=== PATIENT | male | born 1995 | race Caucasian/White ===

== ENCOUNTER → 2020-05-25 15:20 | Outpatient (BNVA) | payer OTHER, SELFPAY | PROVIDERS: Visit Provider Internal Medicine | DX: E03.9 Hypothyroidism, unspecified (principal); E27.1 Primary adrenocortical insufficiency | CPT/HCPCS: 99204 ==

== ENCOUNTER 2020-12-20 15:22 | Outpatient (CLI) | payer OTHER, SELFPAY ==
[2020-12-20 16:17] LABS: Anion Gap 12.2 (5-19); Blood Urea Nitrogen 15 mg/dL (6-20); Calcium 9.4 mg/dL (8.5-10.5); Carbon Dioxide 29 mmol/L (22-29); Chloride 97 mmol/L (98-107); Free T4 Free Thyroxine 1.76 ng/dL (0.82-1.77); Glomerular Filtration Rate 101.2 mL/min (90-130); Glucose 83 mg/dL (65-115); Osmolality Calculated 278 mOsm/kg (285-295); Potassium 4.2 mmol/L (3.5-5.1); Sodium 134 mmol/L (136-145); Thyroid Stimulating Hormone 1.96 uIU/mL (0.27-4.20)
[2020-12-23 13:17] LABS: Plasma Renin Activity LC/MS/MS 8.24 ng/mL/h (0.25-5.82)
== END 2020-12-20 15:23 | disposition home or self-care (01) ==
PROVIDERS: Visit Provider Internal Medicine
DX: E03.9 Hypothyroidism, unspecified (principal); E27.1 Primary adrenocortical insufficiency
CPT/HCPCS: 36415; 80048; 84244; 84439; 84443

== ENCOUNTER → 2021-03-28 13:26 | Outpatient (BNVA) | payer OTHER, SELFPAY | PROVIDERS: Visit Provider Internal Medicine | DX: E27.1 Primary adrenocortical insufficiency (principal); E03.9 Hypothyroidism, unspecified | CPT/HCPCS: 99214 ==

== ENCOUNTER 2021-03-28 14:38 | Outpatient (CLI) | payer OTHER, SELFPAY ==
[2021-03-28 15:57] LABS: Anion Gap 15.5 (5-19); Blood Urea Nitrogen 13 mg/dL (6-20); Calcium 8.9 mg/dL (8.5-10.5); Carbon Dioxide 23 mmol/L (22-29); Chloride 102 mmol/L (98-107); Free T4 Free Thyroxine 1.42 ng/dL (0.82-1.77); Glucose 97 mg/dL (65-115); Osmolality Calculated 284 mOsm/kg (285-295); Potassium 3.5 mmol/L (3.5-5.1); Sodium 137 mmol/L (136-145); Thyroid Stimulating Hormone 1.28 uIU/mL (0.27-4.20)
[2021-04-01 01:59] LABS: Plasma Renin Activity LC/MS/MS 2.46 ng/mL/h (0.25-5.82)
== END 2021-03-28 14:39 | disposition home or self-care (01) ==
PROVIDERS: Visit Provider Internal Medicine
DX: E27.1 Primary adrenocortical insufficiency (principal); E03.9 Hypothyroidism, unspecified
CPT/HCPCS: 36415; 80048; 84244; 84439; 84443

== ENCOUNTER 2021-05-12 13:43 | Observation (INO) | payer OTHER, SELFPAY ==
[2021-05-12 13:45] VITALS: BP 103/46; PULSE 105; RESP 14; O2SAT 94; BMI 19.2
[2021-05-12 14:06] VITALS: BP 99/39; PULSE 107; RESP 14; O2SAT 97
--- NOTE | 2021-05-12 14:17 | ECG_ITS ---
[facility] Test Date: 2021-05-12 Pat Name: Pedrito Haas Department: Room: Gender: Male Trim Technician: : 1995 Requested By: Mehrdad Brown Order Number: [id number] Kostas MD: MARISSA FREDERICK Measurements Intervals Maxie Rate: 117 P: 73 OK: 149 QRS: 26 QRSD: 98 T: 83 QT: 420 QTc: 588 Interpretive Statements SINUS TACHYCARDIA POSSIBLE RIGHT VENTRICULAR CONDUCTION DELAY [RSR (QR) IN V1/V2] SEPTAL MYOCARDIAL INFARCTION , OF INDETERMINATE AGE [40+ ms Q WAVE IN V1/V2] No previous ECG available for comparison Electronically Signed On 05-12-2021 19:56:30 PET [employer]PPLIES SALESPERSON by MARISSA FREDERICK [email or web address] [id number]
--- NOTE | 2021-05-12 14:18 | XRR_ITS ---
PROCEDURE INFORMATION: Exam: XR Chest Exam date and time: 05/12/2021 2:18 PM Age: 25 years old Clinical indication: Other: AMS; Additional info: Altered mental status TECHNIQUE: Imaging protocol: XR of the chest. Views: 1 view. COMPARISON: No relevant prior studies available. FINDINGS: Lungs: Unremarkable. No consolidation. Pleural spaces: Unremarkable. No pleural effusion. No pneumothorax. Heart/Mediastinum: Unremarkable. No cardiomegaly. Bones/joints: Unremarkable. XR/XR chest 1V portable [id number] IMPRESSION: No acute findings.
--- NOTE | 2021-05-12 14:24 | ED_ITS ---
HPI - Altered Mental Status General: Chief Complaint: Altered Mental Status Stated Complaint: COMPLICATIONS OF ADDISONS Time Seen by Provider: 05/12/21 13:59 Source: patient and family Mode of arrival: EMS Limitations: altered mental status History of Present Illness: HPI narrative: According to the father patient started getting ill 3 days ago. Patient started having some mild confusion about 4 days ago. He did initially complain of a headache sore throat and low back pain. He had some mild nausea yesterday. He has had general malaise for the last 4 days. States she got up to go to work yesterday and did not feel well and went back to sleep. Patient slept most of the day. Patient has been ambulatory through the evening and early this morning. No fever or cough. Patient reportedly had a bowel movement early this morning that was loose but no constipation or blood. Patient denies any trauma. Father denies any trauma. Patient is acting similar as he acted when he was having Denver's crisis 1 or 2 years ago. Patient reportedly has been compliant with medications but father is unsure about this. Patient has prescription bottles for for cortisone and p rednisone and levothyroxine. Patient has severe general malaise now. Patient does awaken to verbal stimuli. Patient does answer some questions clearly. Patient states he has some mild generalized abdominal pain. complaint: altered mental status, confusion and decreased responsiveness Onset (ago): day(s) (2) Timing confirmed by: family member Severity: severe Consistency of symptoms: Getting Worse Review of Systems Const: Reports: body aches, fatigue and malaise; Denies: fever(s) or chills Eyes: Denies: change in vision ENMT: Reports: throat pain Card: Denies: chest pain or palpitations Resp: Denies: dyspnea or wheezing GI: Reports: nausea; Denies: abdominal pain or vomiting : Denies: flank pain Musc: Denies: neck pain or back pain Skin/Breast: Denies: rash or pruritus Neuro: Denies: headache(s) or numbness in extremities Psych: Denies: anxiety Jorge/Lymph: Denies: enlarged lymph nodes All/Imm: Denies: urticaria PFSH ED PFSH: Medical History Addisons disease Weight loss Surgical History No history of previous surgery Family History Mother IBS (irritable bowel syndrome) Social History Smoking and tobacco status: never smoked Second hand smoke exposure: Yes Alcohol intake: current Alcohol intake frequency: holidays/special occasions only Marital status: Single Current occupational status: employed Supplemental [facility] Information: StatesPatient does chew tobacco. She does not drink alcohol. Patient is allergic to penicillin. Physical Exam Const: COMMON NORMALS: no acute distress, no limitations, alert and well nourished EXAM LIMITATIONS: altered mental status GENERAL APPEARANCE: cooperative and disheveled ORIENTATION/CONSCIOUSNESS: Yes oriented to person and Yes oriented to place OTHER: Patient does awaken to verbal stimuli but is somnolent otherwise. Speech is clear. Patient appears mildly disoriented. Blood pressure is 99/39 with a heart rate of 105. Father states patient was very hypotensive with his first Vimal's crisis. HENMT: COMMON NORMALS: normocephalic and atraumatic HEAD & SCALP: normocephalic and atraumatic FACE & SINUS: normal facial exam Eye: COMMON NORMALS: EOMs intact bilaterally Neck/C-Spine: COMMON NORMALS: full ROM, no lymphadenopathy, supple, no meningeal signs and no JVD GENERAL: Yes normal visual inspection Lymph: LYMPHATIC: no lymphadenopathy noted Chest: COMMONS NORMALS: normal inspection of the chest and normal palpation of entire chest wall CHEST: No Ecchymosis present and No rash Resp: COMMON NORMALS: normal respiratory effort, No retractions and clear to auscultation bilaterally EFFORT & INSPECTION: No respiratory distress AUSCULTATION: clear to auscultation bilaterally Cardio: COMMON NORMALS: no JVD, regular rate, regular rhythm and Peripheral pulses 2+ throughout JUGULAR VENOUS DISTENTION: no JVD RATE: regular rate and tachycardic RHYTHM: regular rhythm PERIPHERAL PULSES: Peripheral pulses 2+ throughout GI: COMMON NORMALS: Normal to inspection, nondistended, normoactive bowel sounds present and non-tender : COMMON NORMALS: Yes no CVA tenderness BLADDER/KIDNEY EXAM: Yes no CVA tenderness Back/Pelvis: COMMON NORMALS: no CVA tenderness Extremity: COMMON NORMALS: normal to inspection, full ROM and capillary refill normal Neuro: COMMON NORMALS: CN's II-XII intact bilaterally, no focal motor deficits, no sensory deficits noted and deep tendon reflexes 2+ bilaterally SENSORIUM/ORIENTATION: Yes alert, Yes oriented to person and Yes oriented to place MENINGEAL SIGNS: Yes no meningeal signs Psych: COMMON NORMALS: mental status grossly normal and Normal thought process present THOUGHT PROCESS: Normal thought process present Skin: COMMON NORMALS: no rashes or lesions noted and no wounds GENERAL SKIN EXAM: no rashes or lesions noted Course Vital Signs: Vital signs: Vital Signs Pulse Rate 107 H 05/12/21 14:06 Respiratory Rate 14 05/12/21 14:06 Blood Pressure 99/39 05/12/21 14:06 Pulse Oximetry 97 05/12/21 14:06 MDM - Altered Mental Status MDM Narrative: Medical decision making narrative: 1530: Patient now much more awake after the Solu-Cortef. Patient still slightly confused. 1736: Patient is awake alert. Appears in no distress. His COVID test is positive. Will discuss with hospitalist for admission. 1742: Discussed with hospitalist Dr. Davis. Admitted as an inpatient to [facility]. Differential Diagnosis: Differential diagnosis altered mental status: Likely altered mental status (Denver's crisis) Lab Data: Attestation: I reviewed the patient's lab results. Labs: Lab Results 05/12/21 05/12/21 05/12/21 13:15 13:15 13:15 WBC 10.1 10^3/uL H 10 ^3/uL (4.0-10.0) RBC 4.96 10^6/uL 10^6 /uL (4.1-5.3) Hgb 14.8 g/dL g/dL (11.7-16.6) Hct 42.1 % % (42.0-52.0) MCV 84.9 fl fl (80-94) MCH 29.8 pg pg (28.0-34.0) MCHC 35.2 g/dL g/dL (30.0-36.0) RDW 11.9 % L % (12.1-15.1) Plt Count 42 10^3/cmm L 10^ 3/cmm (130-400) MPV 13.0 fL H fL (7.4-10.4) Neut % (Auto) 65.0 % % Lymph % (Auto) 26.7 % % [place] % (Auto) 8.0 % % Eos % (Auto) 0.0 % % Baso % (Auto) 0.1 % % Neut # (Auto) 6.56 10^3/uL 10^3 /uL (1.8-7.7) Lymph # (Auto) 2.7 10^3/uL 10^3/ uL (0.8-4.8) [place] # (Auto) 0.8 10^3/uL 10^3/ uL (0.2-0.9) Eos # (Auto) 0.0 10^3/uL 10^3/ uL (0.0-0.8) Baso # (Auto) 0.0 10^3/uL 10^3/ uL (0.0-0.1) Nucleated RBC % (a uto) 0 % % Nucleated RBCs # 0.0 /100WBC /100W BC Sodium 134 mmol/L L mmol /L (136-145) Potassium 3.1 mmol/L L mmol /L (3.5-5.1) Chloride 95 mmol/L L mmol/ L (98-107) Carbon Dioxide 21 mmol/L L mmol/ L (22-29) Anion Gap 21.1 H (5-19) BUN 16 mg/dL mg/dL (6-20) Creatinine 1.3 mg/dL H mg/dL (0.7-1.2) GFR Calculation 66.2 mL/min L mL/ min (90-130) Glucose 99 mg/dL mg/dL (65-115) POC Glucose Calculated Osmolal ity 279 mOsm/kg L mOs m/kg (285-295) Lactate Calcium 8.8 mg/dL mg/dL (8.5-10.5) Total Bilirubin 1.1 mg/dL mg/dL (0.15-1.2) AST 252 U/L H U/L (0-40) ALT 141 U/L H U/L (0-41) Alkaline Phosphata se 77 IU/L IU/L (40-130) Troponin T Baselin e 11 ng/L ng/L (0-15) Troponin T 120 Min [place] Troponin T Total Protein 7.0 g/dL g/dL (6.6-8.7) Albumin 4.4 g/dL g/dL (3.5-5.2) Globulin 2.6 g/dL g/dL (1.3-4.6) TSH 0.61 uIU/mL uIU/m L (0.27-4.20) Salicylates < 0.3 mg/dL L mg/ dL (3-10) Acetaminophen < 5.0 ug/mL L ug/ mL (10-30) Ethyl Alcohol < 10 mg/dL mg/dL (0-10) Coronavirus 229E ( PCR) Influenza Type A A g Influenza Type B A g SARS-CoV-2 (PCR) SARS-CoV-2 Ag (Rap id) Group A Strep Rapi d 05/12/21 05/12/21 05/12/21 14:38 14:54 14:54 WBC RBC Hgb Hct MCV MCH MCHC RDW Plt Count MPV Neut % (Auto) Lymph % (Auto) [place] % (Auto) Eos % (Auto) Baso % (Auto) Neut # (Auto) Lymph # (Auto) [place] # (Auto) Eos # (Auto) Baso # (Auto) Nucleated RBC % (a uto) Nucleated RBCs # Sodium Potassium Chloride Carbon Dioxide Anion Gap BUN Creatinine GFR Calculation Glucose POC Glucose 85 mg/dL mg/dL (70-110) Calculated Osmolal ity Lactate Calcium Total Bilirubin AST ALT Alkaline Phosphata se Troponin T Baselin e Troponin T 120 Min [place] Troponin T Total Protein Albumin Globulin TSH Salicylates Acetaminophen Ethyl Alcohol Coronavirus 229E ( PCR) Influenza Type A A g Negative (Negative) Influenza Type B A g Negative (Negative) SARS-CoV-2 (PCR) SARS-CoV-2 Ag (Rap id) Group A Strep Rapi d Negative (Negative) 05/12/21 05/12/21 05/12/21 14:54 14:54 15:15 WBC RBC Hgb Hct MCV MCH MCHC RDW Plt Count MPV Neut % (Auto) Lymph % (Auto) [place] % (Auto) Eos % (Auto) Baso % (Auto) Neut # (Auto) Lymph # (Auto) [place] # (Auto) Eos # (Auto) Baso # (Auto) Nucleated RBC % (a uto) Nucleated RBCs # Sodium Potassium Chloride Carbon Dioxide Anion Gap BUN Creatinine GFR Calculation Glucose POC Glucose Calculated Osmolal ity Lactate 1.4 mmol/L mmol/L (0.5-2.2) Calcium Total Bilirubin AST ALT Alkaline Phosphata se Troponin T Baselin e Troponin T 120 Min [place] Troponin T Total Protein Albumin Globulin TSH Salicylates Acetaminophen Ethyl Alcohol Coronavirus 229E ( PCR) Not detected (NOT DETECT) Influenza Type A A g Influenza Type B A g SARS-CoV-2 (PCR) Detected A (NOT DETECT) SARS-CoV-2 Ag (Rap id) Cancelled Group A Strep Rapi d 05/12/21 15:15 WBC RBC Hgb Hct MCV MCH MCHC RDW Plt Count MPV Neut % (Auto) Lymph % (Auto) [place] % (Auto) Eos % (Auto) Baso % (Auto) Neut # (Auto) Lymph # (Auto) [place] # (Auto) Eos # (Auto) Baso # (Auto) Nucleated RBC % (a uto) Nucleated RBCs # Sodium Potassium Chloride Carbon Dioxide Anion Gap BUN Creatinine GFR Calculation Glucose POC Glucose Calculated Osmolal ity Lactate Calcium Total Bilirubin AST ALT Alkaline Phosphata se Troponin T Baselin e Troponin T 120 Min [place] 11.11 ng/L ng/L (0-15) Delta Troponin T 0.11 ABS# ABS# (0-10) Total Protein Albumin Globulin TSH Salicylates Acetaminophen Ethyl Alcohol Coronavirus 229E ( PCR) Influenza Type A A g Influenza Type B A g SARS-CoV-2 (PCR) SARS-CoV-2 Ag (Rap id) Group A Strep Rapi d Imaging Data^: CXR: Attestation: I personally reviewed and interpreted this imaging study as follows: My impression: nothing acute Radiologist's impression: Ordering Provider/Ordering MD: Mehrdad Aparicio MD Date of Service: 05/12/21 Procedure(s): XR chest 1V portable [id number] Accession Number(s): [id number] Report Number: [id number] PROCEDURE INFORMATION: Exam: XR Chest Exam date and time: 05/12/2021 2:18 PM Age: 25 years old Clinical indication: Other: AMS; Additional info: Altered mental status TECHNIQUE: Imaging protocol: XR of the chest. Views: 1 view. COMPARISON: No relevant prior studies available. FINDINGS: Lungs: Unremarkable. No consolidation. Pleural spaces: Unremarkable. No pleural effusion. No pneumothorax. Heart/Mediastinum: Unremarkable. No cardiomegaly. Bones/joints: Unremarkable. XR/XR chest 1V portable [id number] IMPRESSION: No acute findings. EKG Data^: EKG 1: Attestation: I personally reviewed and interpreted this EKG as follows: EKG interpretation date: 05/12/21 EKG interpretation time: 14:37 Prior EKG tracings: not available for review Ischemic changes: non-specific ST-T wave changes Interpretation: EKG shows sinus tachycardia with heart rate of 117 with normal [place] interval., IVCD, nonspecific ST-T changes with early repolarization in the anterior leads. Normal T waves. Normal axis.. I do not suspect acute AR. However, I have sent this EKG to the picker and packer for review. Discharge Plan Discharge Patient Disposition: Admitted As Inpatient Clinical Impression: Addisonian crisis, Addisons disease, Dehydration, moderate, Thrombocytopenia, 2019 novel coronavirus detected Condition: Stable Coding Level of Care Code ED Wallpaper Inspector And Shipper for g Fwd Exam Comprehensive
[2021-05-12 14:28] LABS: Basophils % 0.1 %; Hematocrit 42.1 % (42.0-52.0); Hemoglobin 14.8 g/dL (11.7-16.6); Lymphocytes # 2.7 10^3/uL (0.8-4.8); Lymphocytes % 26.7 %; Mean Corpuscular HGB Conc 35.2 g/dL (30.0-36.0); Mean Corpuscular Hemoglobin 29.8 pg (28.0-34.0); Mean Corpuscular Volume 84.9 fl (80-94); Monocytes # 0.8 10^3/uL (0.2-0.9); Neutrophils # 6.56 10^3/uL (1.8-7.7); Nucleated Red Blood Cells % 0 %; Platelet Count 42 10^3/cmm (130-400); Red Blood Count 4.96 10^6/uL (4.1-5.3); Red Cell Distribution Width 11.9 % (12.1-15.1); White Blood Count 10.1 10^3/uL (4.0-10.0)
[2021-05-12 14:49] LABS: Alanine Aminotransferase 141 U/L (0-41); Albumin Level 4.4 g/dL (3.5-5.2); Alkaline Phosphatase 77 IU/L (40-130); Aspartate Amino Transferase 252 U/L (0-40); Blood Urea Nitrogen 16 mg/dL (6-20); Calcium 8.8 mg/dL (8.5-10.5); Carbon Dioxide 21 mmol/L (22-29); Chloride 95 mmol/L (98-107); Globulin 2.6 g/dL (1.3-4.6); Glomerular Filtration Rate 66.2 mL/min (90-130); Glucose 99 mg/dL (65-115); Osmolality Calculated 279 mOsm/kg (285-295); Sodium 134 mmol/L (136-145); Thyroid Stimulating Hormone 0.61 uIU/mL (0.27-4.20); Total Bilirubin 1.1 mg/dL (0.15-1.2)
[2021-05-12 14:51] LABS: Acetaminophen < 5.0 ug/mL (10-30); Alcohol Level < 10 mg/dL (0-10); Salicylate < 0.3 mg/dL (3-10)
[2021-05-12 14:53] LABS: Anion Gap 21.1 (5-19); Potassium 3.1 mmol/L (3.5-5.1)
[2021-05-12 14:55] LABS: Glucose Point of Care 85 mg/dL (70-110)
[2021-05-12 15:19] LABS: Troponin(5th) Baseline 11 ng/L (0-15)
[2021-05-12] MEDS: sodium chloride 0.9% 1,000 ML 999 ML IV ×2 (15:25→16:41)
[2021-05-12] MEDS: hydrocortisone 100 mg/2 mL SDV 200 MG IVP (15:26)
[2021-05-12 15:35] LABS: Rapid Strep A Test Negative (Negative)
[2021-05-12] MEDS: potassium chloride premix 100 ML 50 MEQ IV (15:45)
[2021-05-12 15:48] LABS: Lactate (Lactic Acid level) 1.4 mmol/L (0.5-2.2); Troponin 5 2HR 11.11 ng/L (0-15); Troponin 5 2HR Delta 0.11 ABS# (0-10)
[2021-05-12 15:59] LABS: Influenza A by IFA Negative (Negative); Influenza B by IFA Negative (Negative)
[2021-05-12 17:31] LABS: Adenovirus Not Detected (NOT DETECT); Chlamydia Pneumoniae Not Detected (NOT DETECT); Coronavirus 229E,HKU1,NL63,OC4 Not Detected (NOT DETECT); Human Metapneumovirus Not Detected (NOT DETECT); Human Rhinovirus/Enterovirus Not Detected (NOT DETECT); Influenza A Not Detected (NOT DETECT); Influenza A H1 Not Detected (NOT DETECT); Influenza A H1-2009 Not Detected (NOT DETECT); Influenza A H3 Not Detected (NOT DETECT); Influenza B Not Detected (NOT DETECT); Mycoplasma Pneumoniae Not Detected (NOT DETECT); Parainfluenza Virus Type 1 Not Detected (NOT DETECT); Parainfluenza Virus Type 2 Not Detected (NOT DETECT); Parainfluenza Virus Type 3 Not Detected (NOT DETECT); Parainfluenza Virus Type 4 Not Detected (NOT DETECT); Respiratory Syncytial Virus A Not Detected (NOT DETECT); Respiratory Syncytial Virus B Not Detected (NOT DETECT); SARS-COV-2 Detected (NOT DETECT)
--- NOTE | 2021-05-12 18:11 | PM.HP ---
Providers/Chief Complaint Admitting Physician: Khadra Davis MD Chief Complaint: COMPLICATIONS OF ADDISONS History of Present Illness Pedrito Haas is a 25 year old male who presented to the hospital with chief complaint of confusion. Father is at the bedside who is providing history. 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 He takes prednisone 5 mg daily along fludrocortisone 0.1 mg and levothyroxine. He has not missed any of his medications, yesterday morning he woke up feeling sick, experienced nausea however he went to his work and return home feeling very fatigued lethargic however today when he woke up he was not making sense at all and that prompted his visit to the ER. Father has not noticed recent fever, vomiting. Patient is not able to provide any history however when I asked him his name he was able to say Pedrito. He kept staring at me Moving all of his extremities. Pupils are equal and reactive. His confusion as per the ER physician did improve somewhat after giving IV steroids, he has hypokalemia, hyponatremia, MERYL, abnormal transaminases Unremarkable troponin, EKG is sinus tachycardia Clinically looks dehydrated Skin pigmentation Low blood pressure He is not vaccinated for COVID-19, COVID PCR positive Review of Systems General: Reports: ROS unobtainable due to medical condition (Hypoactive delirium due to COVID-19 and Fillmore crisis) Medications/Allergies Home Medications Medication Instructions Recorded Confirmed Last Taken Type prednisone 5 mg tablet 5 mg PO DAILY 30 Days #30 tab 12/29/20 05/12/21 Unknown Rx fludrocortisone 0.1 mg tablet 0.1 mg PO DAILY 90 Days #90 tab 01/02/21 05/12/21 05/11/21 Rx levothyroxine 50 mcg tablet 50 mcg PO DAILY #90 tab 03/08/21 05/12/21 05/11/21 Rx Allergies Allergy/AdvReac Type Severity Reaction Status Date / Time penicillin G Allergy Unknown Unknown Verified 03/28/21 14:03 PFSH Acute PFSH: Medical History Addisons disease Weight loss Surgical History No history of previous surgery Family History Mother IBS (irritable bowel syndrome) Social History Smoking and tobacco status: never smoked Second hand smoke exposure: Yes Alcohol intake: current Alcohol intake frequency: holidays/special occasions only Marital status: Single Current occupational status: employed Vitals/I&O/Wt Last Vital Signs Pulse 107 H 05/12/21 14:06 Resp 14 05/12/21 14:06 BP 99/39 05/12/21 14:06 Pulse Ox 97 05/12/21 14:06 05/12/21 05/12/21 05/12/21 06:59 14:59 22:59 Intake Total 1000 / 1000 Balance 1000 / 1000 Weight last 48 hrs Weight 68.039 kg Physical Exam Narrative: EXAM NARRATIVE: Malnourished unkept appearance Young male Muscle mass loss Skin pigmentation noted Brown skin color Moving all of his extremities Oriented to himself Pupils are equal and reactive S1, S2 sinus tachycardia Clinically looks dehydrated Abdomen soft No signs of edema of legs Neuro exam is limited Saturating well on room air No acute respiratory distress Data : 05/12/21 13:15 05/12/21 13:15 Micro: Microbiology 05/12/21 15:16 Blood Culture - Preliminary Blood SPECIMEN COLLECTED 05/12/21 15:09 Blood Culture - Preliminary Blood SPECIMEN COLLECTED A&P Assessment and plan (1) Addisonian crisis: Status: Acute (2) Dehydration, moderate: Status: Acute (3) Thrombocytopenia: Status: Acute (4) 2019 novel coronavirus detected: Status: Acute (5) Weight loss: Status: Acute (6) Addisons disease: Status: Acute (7) Hypothyroidism: Status: Acute Qualifiers: Hypothyroidism type: acquired Qualified Code(s): E03.9 - Hypothyroidism, unspecified (8) Hypokalemia: Status: Acute (9) Abnormal transaminases: Status: Acute (10) MERYL (acute kidney injury): Status: Acute Additional A&P Information COVID-19 PCR detected Not vaccinated Currently on room air 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 Addisonian crisis Hypokalemia Hypotension Blood sugar normal Encephalopathy related with adrenal crisis We will give him 100 mg of hydrocortisone every 8 hours for next 24 hours Continue fludrocortisone and levothyroxine TSH is normal Sinus tachycardia Secondary to dehydration Check D-dimer Procalcitonin unremarkable Chest x-ray unremarkable Abnormal transaminases Theology unknown Will request ultrasound of gallbladder in the morning Alcohol level undetectable, acetaminophen level unremarkable Likely secondary to hypotension Thrombocytopenia Cause unknown Will check Lyme disease panel DVT prophylaxis: SCDs Avoid anticoagulating agent due to thrombocytopenia Regular diet Attestations Medical Necessity Statement*: More than 2 midnights anticipated Time Spent in Patient Care: Greater than 35 minutes Coding Level of Care Code Acute Warehouse Operations Associate for g Fwd Diagnoses Addisonian crisis E27.2 Dehydration, moderate E86.0 Thrombocytopenia D69.6 2019 novel coronavirus detected U07.1 Weight loss R63.4 Addisons disease E27.1 Hypothyroidism E03.9 Hypothyroidism type: acquired Hypokalemia E87.6 Abnormal transaminases R74.8 MERYL (acute kidney injury) N17.9
[2021-05-12] MEDS: dextrose 5%-sod chloride 0.45% 1,000 ML 150 ML IV (18:45)
[2021-05-12 18:50] LABS: Ketone (Acetest) Serum Negative (Negative)
[2021-05-12 19:01] LABS: Procalcitonin 6.03 ng/mL (0-0.5)
--- NOTE | 2021-05-12 19:21 | PC.NURSE ---
Nurse from [facility] Irineo RN states that pt. has altered mental status and has urinated in the floor several times and has tried to remove IV site as well.
[2021-05-12] MEDS: cefTRIAXone 1,000 MG in sodium chloride 0.9% (plus) 50 ML 100 MG IV (19:38)
--- NOTE | 2021-05-12 19:38 | PC.NURSE ---
I went in to assess the patient. He is lying on his side wearing only his T-shirt. His father stated that he just had to wrestle with him right before he was asked to leave due to the patient being positive for covid. When the patient is asked his name and what he is here for, he gets angry and yells let me go to bed . After several attempts to get the patient to speak or assess mental status , pt. is refusing to speak.
[2021-05-12 19:53] VITALS: BP 105/46; PULSE 86; RESP 18; O2SAT 98
[2021-05-12 20:17] LABS: Troponin 5 6HR 12.58 ng/L (0-15); Troponin 5 6HR Delta 1.58 ng/L (0-12)
--- NOTE | 2021-05-12 20:45 | PC.NURSE ---
Pt. has gotten out of bed twice to walk to the corner of the room and urinate in the trash can. Pt. is aggressive with staff.
[2021-05-12 21:06] VITALS: BP 90/59; PULSE 86; RESP 18; O2SAT 100
[2021-05-12 21:41] LABS: Bilirubin Urine Neg (Negative); Blood Urine 2+ (Negative); Glucose Urine UA Norm (Normal); Ketones Urine 2+ (Negative); Leukocyte Esterase Urine Negative (Negative); Nitrate Urine Negative (Negative); Protein Urine Neg (Negative); Urine Appearance Clear (CLEAR); Urine Color Yellow (Yellow); Urobilinogen Urine Norm (Negative); pH Urine 5 (5-7)
[2021-05-12 21:42] LABS: Glucose Point of Care 204 mg/dL (70-110)
[2021-05-12 21:47] LABS: Add Urine Culture? No; Bacteria Urine TRACE /hpf; RBC Urine 0-4 /hpf (0-2); Squamous Epithelial Cell Urine 0-4 /hpf (0-5); WBC Urine 0-4 /hpf (0-5)
[2021-05-12 21:50] LABS: Amphetamines Screen Urine Negative (Negative); Barbiturates Screen Urine Negative (Negative); Benzodiazepines Screen Urine Negative (Negative); Cocaine Screen Urine Negative (Negative); Opiate Screen Urine Negative (Negative); PCP Screen Urine Negative (Negative); THC Screen Urine Negative (Negative)
[2021-05-12 21:54] VITALS: BP 95/49; PULSE 94; RESP 20; O2SAT 96
--- NOTE | 2021-05-12 21:54 | PC.NURSE ---
Pt. up out of bed and tried to push staff out of the way so he could urinate in the trash can . I stopped the patient from getting out of bed and assisted him with the use of a urinal . Pt. yelling at staff oh my god let me go pee! . I explained to patient several times that he was urinating in the urinal while we were talking.
--- NOTE | 2021-05-12 22:29 | PC.NURSE ---
Pt. up out of bed trying to force his way to the trash can to urinate. Pt. was assisted in using a urinal . Pt. then had a bowel movement on the bed. pt. bed changed and pt. cleaned and back in bed.
[2021-05-12 23:09] LABS: Hepatitis A Antibody IgM Non-Reactive (Nonreactive); Hepatitis B Core AB, Total Non-Reactive (Nonreactive); Hepatitis B Surface AB 3.5 (11.5-1000); Hepatitis B Surface Antigen Non-Reactive (Nonreactive); Hepatitis C Virus Antibody Non-Reactive (Nonreactive)
[2021-05-12 23:40] VITALS: BP 95/61; PULSE 91; RESP 18; O2SAT 100
[2021-05-13] VITALS (12 sets, daily range): BP systolic 92–128; BP diastolic 43–76; PULSE 67–97; RESP 16–18; TEMP 36.4–36.8; O2SAT 98–100; BMI 19.2
[2021-05-13] MEDS: hydrocortisone 100 mg/2 mL SDV IVP ×3 (00:33→21:45)
--- NOTE | 2021-05-13 00:34 | PC.NURSE ---
Pt. assisted using urinal . Pt. seems to be more alert and oriented than earlier.
[2021-05-13] MEDS: dextrose 5%-sod chloride 0.45% 1,000 ML 150 ML IV (02:23)
[2021-05-13 02:24] LABS: Glucose Point of Care 292 mg/dL (70-110)
[2021-05-13 05:04] LABS: Basophils % 0.1 %; Hematocrit 38.5 % (42.0-52.0); Hemoglobin 13.5 g/dL (11.7-16.6); Lymphocytes # 0.7 10^3/uL (0.8-4.8); Lymphocytes % 8.2 %; Mean Corpuscular HGB Conc 35.1 g/dL (30.0-36.0); Mean Corpuscular Hemoglobin 29.5 pg (28.0-34.0); Mean Corpuscular Volume 84.2 fl (80-94); Mean Platelet Volume 12.2 fL (7.4-10.4); Monocytes # 0.2 10^3/uL (0.2-0.9); Monocytes % 2.8 %; Neutrophils # 7.35 10^3/uL (1.8-7.7); Neutrophils % 88.7 %; Nucleated Red Blood Cells % 0 %; Platelet Count 134 10^3/cmm (130-400); Red Blood Count 4.57 10^6/uL (4.1-5.3); Red Cell Distribution Width 11.9 % (12.1-15.1); White Blood Count 8.3 10^3/uL (4.0-10.0)
[2021-05-13 05:28] LABS: Alanine Aminotransferase 137 U/L (0-41); Albumin Level 4.2 g/dL (3.5-5.2); Alkaline Phosphatase 69 IU/L (40-130); Anion Gap 14.7 (5-19); Aspartate Amino Transferase 163 U/L (0-40); Blood Urea Nitrogen 9 mg/dL (6-20); C Reactive Protein 57.7 mg/L (0.0-4.9); Calcium 8.6 mg/dL (8.5-10.5); Carbon Dioxide 23 mmol/L (22-29); Chloride 102 mmol/L (98-107); Globulin 2.1 g/dL (1.3-4.6); Glucose 214 mg/dL (65-115); Lipase 38 U/L (13-60); Magnesium 1.9 mg/dL (1.7-2.3); Osmolality Calculated 287 mOsm/kg (285-295); Potassium 3.7 mmol/L (3.5-5.1); Sodium 136 mmol/L (136-145); Total Bilirubin 0.6 mg/dL (0.15-1.2); Total Protein 6.3 g/dL (6.6-8.7)
--- NOTE | 2021-05-13 06:06 | PC.NURSE ---
Pt. is alert and oriented and wearing pants. Pt. is up at bedside eating a sandwich tray.
--- NOTE | 2021-05-13 06:49 | PC.NURSE ---
I called Doctor and informed him that the patient's morning labs are in and there have been several changes.
[2021-05-13] MEDS: levothyroxine 50 mcg Tablet PO (09:03)
[2021-05-13] MEDS: lactated ringers 1,000 ML 999 ML IV (09:03)
[2021-05-13 09:08] LABS: Glucose Point of Care 156 mg/dL (70-110)
[2021-05-13 09:57] LABS: Estmated Average Glucose 97
[2021-05-13] MEDS: fludrocortisone 0.1 mg Tablet PO (10:14)
--- NOTE | 2021-05-13 11:12 | PM.PN ---
Subjective Subjective: Interval history: This morning patient is awake and alert No overnight events Secondary to low blood pressure and hyperglycemia given 1 L bolus No signs of meningitis Remained afebrile Urinalysis unremarkable Discontinue ceftriaxone D-dimer 1.4, heart rate is better, he is not hypoxic Vitals/I&O/Wt Last Vital Signs Temp 97.5 F L 05/13/21 08:59 Pulse 95 05/13/21 08:43 Resp 18 05/13/21 04:40 BP 117/68 05/13/21 08:43 Pulse Ox 99 05/13/21 08:43 05/12/21 05/13/21 05/13/21 22:59 06:59 14:59 Intake Total 2150 / 2150 1000 / 3150 1000 / 1000 Balance 2150 / 2150 1000 / 3150 1000 / 1000 Weight last 48 hrs Weight 68.039 kg Physical Exam Narrative: EXAM NARRATIVE: Patient is awake and alert No signs of meningitis EOMI, PERRLA EOMI, PERRLA Nonfocal neuro exam Appropriate mood and affect Clinically looks dehydrated Heart rate has improved S1, S2 Bilateral breath sound without adventitious rhonchi or crackles No use of respiratory sensory muscles On room air Abdomen soft No signs of edema Bronze skin pigmentation Data : 05/13/21 04:59 05/13/21 04:59 Micro: Microbiology 05/12/21 15:16 Blood Culture - Preliminary Blood SPECIMEN COLLECTED 05/12/21 15:09 Blood Culture - Preliminary Blood SPECIMEN COLLECTED A&P Assessment and plan (1) MERYL (acute kidney injury): Status: Acute (2) Abnormal transaminases: Status: Acute (3) Hypokalemia: Status: Acute (4) Addisonian crisis: Status: Acute (5) Dehydration, moderate: Status: Acute (6) Thrombocytopenia: Status: Acute (7) 2019 novel coronavirus detected: Status: Acute (8) Weight loss: Status: Acute (9) Addisons disease: Status: Acute (10) Hypothyroidism: Status: Acute Qualifiers: Hypothyroidism type: acquired Qualified Code(s): E03.9 - Hypothyroidism, unspecified Additional A&P Information Addisonian crisis: Resolved De-escalate stress dose steroids Encephalopathy resolved No signs of meningitis or stroke MERYL: Improved with IV fluid hydration Hypokalemia: Improved COVID-19: Not requiring oxygen, hold off on bam infusion considering immunocompromise state Plan to discharge him tomorrow morning Abnormal transaminases: Trending down Liver ultrasound pending He got empirical dose of ceftriaxone yesterday UA unremarkable Attestations Medical Necessity Statement*: Discharge next 30 hours Time Spent in Patient Care: 16 - 35 minutes Coding Level of Care Code Acute Stockroom Clerk for g Fwd Diagnoses MERYL (acute kidney injury) N17.9 Abnormal transaminases R74.8 Hypokalemia E87.6 Addisonian crisis E27.2 Dehydration, moderate E86.0 Thrombocytopenia D69.6 2019 novel coronavirus detected U07.1 Weight loss R63.4 Addisons disease E27.1 Hypothyroidism E03.9 Hypothyroidism type: acquired
--- NOTE | 2021-05-13 13:43 | PC.NURSE ---
Message sent to Dr. Davis of Positive blood culture 1 of 3 bottles of gram positive cocci in clusters.
[2021-05-13] MEDS: vancomycin 1,000 MG in sodium chloride 0.9% 250 ML 250 MG IV ×2 (14:35→21:44)
--- NOTE | 2021-05-13 17:09 | PC.NURSE ---
Patients blood sugar was 122 this evening.
[2021-05-13 17:19] LABS: Glucose Point of Care 122 mg/dL (70-110)
--- NOTE | 2021-05-13 23:00 | PC.NURSE ---
Patient alert and oriented. Denies pain. Vancomycin infused per md order. Denies pain. VSS. will continue to monitor.
[2021-05-14] VITALS (9 sets, daily range): BP systolic 100–123; BP diastolic 50–68; PULSE 53–88; RESP 16–18; TEMP 36.5–36.8; O2SAT 95–100
[2021-05-14 05:35] LABS: Basophils % 0.1 %; Hematocrit 36.7 % (42.0-52.0); Hemoglobin 12.6 g/dL (11.7-16.6); Lymphocytes % 7.7 %; Mean Corpuscular HGB Conc 34.3 g/dL (30.0-36.0); Mean Corpuscular Hemoglobin 29.5 pg (28.0-34.0); Mean Corpuscular Volume 85.9 fl (80-94); Mean Platelet Volume 12.2 fL (7.4-10.4); Monocytes # 0.5 10^3/uL (0.2-0.9); Monocytes % 3.7 %; Neutrophils # 10.85 10^3/uL (1.8-7.7); Neutrophils % 88.1 %; Nucleated Red Blood Cells % 0 %; Platelet Count 130 10^3/cmm (130-400); Red Blood Count 4.27 10^6/uL (4.1-5.3); Red Cell Distribution Width 12.4 % (12.1-15.1); White Blood Count 12.3 10^3/uL (4.0-10.0)
[2021-05-14 05:48] LABS: Alanine Aminotransferase 86 U/L (0-41); Albumin Level 3.9 g/dL (3.5-5.2); Alkaline Phosphatase 56 IU/L (40-130); Anion Gap 15.9 (5-19); Aspartate Amino Transferase 78 U/L (0-40); Blood Urea Nitrogen 11 mg/dL (6-20); Calcium 8.6 mg/dL (8.5-10.5); Carbon Dioxide 23 mmol/L (22-29); Chloride 104 mmol/L (98-107); Creatinine Clr Calc Pharmacy 152.5478; Globulin 2.2 g/dL (1.3-4.6); Glomerular Filtration Rate 135.3 mL/min (90-130); Glucose 115 mg/dL (65-115); Osmolality Calculated 288 mOsm/kg (285-295); Phosphorus 3.2 mg/dL (2.5-4.5); Potassium 3.9 mmol/L (3.5-5.1); Sodium 139 mmol/L (136-145); Total Bilirubin 0.6 mg/dL (0.15-1.2); Total Protein 6.1 g/dL (6.6-8.7)
[2021-05-14] MEDS: vancomycin 1,000 MG in sodium chloride 0.9% 250 ML 250 MG IV (05:51)
--- NOTE | 2021-05-14 06:23 | PC.NURSE ---
Shift Note Frequent safety and comfort rounds continue. Orders and/or nursing care completed as indicated. Patient monitored for response to intervention and treatment(s). Education provided includes vancomycin. Patient and/or community relations representative verbalizes understanding. Will continue to monitor.
[2021-05-14 07:09] LABS: Glucose Point of Care 115 mg/dL (70-110)
[2021-05-14] MEDS: levothyroxine 50 mcg Tablet PO (08:04)
[2021-05-14] MEDS: fludrocortisone 0.1 mg Tablet PO (08:04)
[2021-05-14] MEDS: hydrocortisone 100 mg/2 mL SDV IVP (08:05)
[2021-05-14 11:08] LABS: Glucose Point of Care 114 mg/dL (70-110)
--- NOTE | 2021-05-14 11:47 | P.PN_ITS ---
Subjective Subjective: Interval history: Patient afebrile Coagulase-negative staph discontinue vancomycin Leukocytosis noted COVID positive On room air Plan to discharge him on 05/15, discontinue stress dose steroids and continue prednisone maintenance regimen Vitals/I&O/Wt Last Vital Signs Temp 97.7 F 05/14/21 08:01 Pulse 66 05/14/21 08:01 Resp 16 05/14/21 08:01 BP 100/62 05/14/21 08:01 Pulse Ox 100 05/14/21 08:01 05/13/21 05/14/21 05/14/21 22:59 06:59 14:59 Intake Total 610 / 1610 1310 / 2920 240 / 240 Output Total 300 / 300 Balance 610 / 1610 1310 / 2920 -60 / -60 Weight last 48 hrs Weight 68.039 kg Weight 68.039 kg Physical Exam Narrative: EXAM NARRATIVE: Saturating well on room air Awake and alert Nonfocal neuro exam Well-hydrated Very cooperative S1, S2 Abdomen soft No acute respiratory distress Data : 05/14/21 05:21 05/14/21 05:21 Micro: Microbiology 05/12/21 15:16 Blood Culture - Preliminary Blood Staphylococcus sp coag neg 05/12/21 15:09 Blood Culture - Preliminary Blood Staphylococcus sp coag neg 05/12/21 14:54 Group A Streptococcus Rapid Screen - Preliminary Throat 05/12/21 21:32 Urine Culture - Final Urine,Clean Catch 05/13/21 15:30 Blood Culture - Preliminary Blood SPECIMEN COLLECTED 05/13/21 15:30 Blood Culture - Preliminary Blood SPECIMEN COLLECTED A&P Assessment and plan (1) MERYL (acute kidney injury): Status: Acute (2) Abnormal transaminases: Status: Acute (3) Hypokalemia: Status: Acute (4) Addisonian crisis: Status: Acute (5) Dehydration, moderate: Status: Acute (6) Thrombocytopenia: Status: Acute (7) 2019 novel coronavirus detected: Status: Acute (8) Weight loss: Status: Acute (9) Addisons disease: Status: Acute (10) Hypothyroidism: Status: Acute Qualifiers: Hypothyroidism type: acquired Qualified Code(s): E03.9 - Hypothyroidism, unspecified Additional A&P Information COVID-positive Quarantine for 3 weeks Doing well on room air Addisonian crisis: Resolved From today start prednisone Home regimen 5 mg Hypothyroidism: Continue levothyroxine MERYL: Resolved Abnormal transaminases: Resolved Blood culture positive with staph epidermidis which is contamination discontinue vancomycin Plan to discharge patient tomorrow morning He is tolerating his diet, encephalopathy has resolved Full code Regular diet Attestations Medical Necessity Statement*: Discharge tomorrow Time Spent in Patient Care: less than 15 minutes Coding Level of Care Code Acute Line Person for [facility] Fwd Diagnoses MERYL (acute kidney injury) N17.9 Abnormal transaminases R74.8 Hypokalemia E87.6 Addisonian crisis E27.2 Dehydration, moderate E86.0 Thrombocytopenia D69.6 2019 novel coronavirus detected U07.1 Weight loss R63.4 Addisons disease E27.1 Hypothyroidism E03.9 Hypothyroidism type: acquired
--- NOTE | 2021-05-14 12:39 | PC.NUTR ---
Received Kamlesh Consult. 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 Left materials to reinforce - Pt thanked me for making it simple. Discussed low BMI and Pt said his UBW range is 135-140 and that his father is also slender. Previous wt. in EMR 03/28/21 was 139 lbs. Current wt in chart is 150 lbs.
[2021-05-14 14:05] LABS: Vancomycin Trough 13.9 ug/mL (10-15)
[2021-05-14 16:53] LABS: Glucose Point of Care 113 mg/dL (70-110)
[2021-05-14 21:30] LABS: Glucose Point of Care 116 mg/dL (70-110)
[2021-05-15] VITALS: BP 110/67; PULSE 63; RESP 15; TEMP 36.6; O2SAT 100
[2021-05-15 02:26] LABS: Basophils % 0.1 %; Hematocrit 33.6 % (42.0-52.0); Hemoglobin 11.4 g/dL (11.7-16.6); Lymphocytes # 2.4 10^3/uL (0.8-4.8); Mean Corpuscular HGB Conc 33.9 g/dL (30.0-36.0); Mean Corpuscular Hemoglobin 29.7 pg (28.0-34.0); Mean Corpuscular Volume 87.5 fl (80-94); Mean Platelet Volume 12.2 fL (7.4-10.4); Monocytes # 0.5 10^3/uL (0.2-0.9); Monocytes % 5.2 %; Neutrophils % 69.5 %; Nucleated Red Blood Cells % 0 %; Platelet Count 106 10^3/cmm (130-400); Red Blood Count 3.84 10^6/uL (4.1-5.3); Red Cell Distribution Width 12.5 % (12.1-15.1); White Blood Count 9.5 10^3/uL (4.0-10.0)
[2021-05-15 02:54] LABS: Alanine Aminotransferase 60 U/L (0-41); Albumin Level 3.4 g/dL (3.5-5.2); Alkaline Phosphatase 55 IU/L (40-130); Anion Gap 13.6 (5-19); Aspartate Amino Transferase 41 U/L (0-40); Blood Urea Nitrogen 18 mg/dL (6-20); Calcium 8.2 mg/dL (8.5-10.5); Carbon Dioxide 25 mmol/L (22-29); Chloride 105 mmol/L (98-107); Creatinine Clr Calc Pharmacy 152.5478; Globulin 2.1 g/dL (1.3-4.6); Glomerular Filtration Rate 135.3 mL/min (90-130); Glucose 92 mg/dL (65-115); Osmolality Calculated 292 mOsm/kg (285-295); Potassium 3.6 mmol/L (3.5-5.1); Sodium 140 mmol/L (136-145); Total Bilirubin 0.6 mg/dL (0.15-1.2); Total Protein 5.5 g/dL (6.6-8.7)
[2021-05-15 04:00] VITALS: BP 107/63; PULSE 76; RESP 18; TEMP 36.5; O2SAT 100
[2021-05-15 06:00] VITALS: PULSE 56
[2021-05-15 06:38] LABS: Glucose Point of Care 100 mg/dL (70-110)
[2021-05-15 08:00] VITALS: BP 110/54; PULSE 60; RESP 16; TEMP 36.7; O2SAT 99
[2021-05-15] MEDS: fludrocortisone 0.1 mg Tablet PO (09:00)
[2021-05-15] MEDS: levothyroxine 50 mcg Tablet PO (09:00)
[2021-05-15] MEDS: predniSONE 5 mg Tablet 10 MG PO (09:00)
--- NOTE | 2021-05-15 11:15 | P.DS_ITS ---
Discharge Providers Date of Admission: 05/12/21 17:45 Date of Discharge: May 15, 2021 Attending Provider at Admission: Khadra Davis MD Attending Provider at Discharge: Khadra Davis MD Diagnoses at Discharge Discharge Diagnosis (1) MERYL (acute kidney injury): Status: Acute (2) Abnormal transaminases: Status: Acute (3) Hypokalemia: Status: Acute (4) Addisonian crisis: Status: Acute (5) Dehydration, moderate: Status: Acute (6) Thrombocytopenia: Status: Acute (7) 2019 novel coronavirus detected: Status: Acute (8) Weight loss: Status: Acute (9) Addisons disease: Status: Acute (10) Hypothyroidism: Status: Acute Qualifiers: Hypothyroidism type: acquired Qualified Code(s): E03.9 - Hypothyroidism, unspecified Reason for Visit Reason for Visit: COMPLICATIONS OF ADDISONS Hospital Course Hospital Course Patient was admitted to the hospital for chief complaint of altered mental status, confusion, lethargy and fatigue. In the hospital he was diagnosed with COVID-19. Addisonian crisis was also diagnosed in the ER and he was given stress dose steroids. He was given 200 mg of stress dose steroids in the ER, stress dose was continued for about 30 hours and then he was transitioned to prednisone 10 mg. At home he takes 5 mg of prednisone which was increased to 10 mg because of new diagnosis of COVID-19. He did not require any oxygen he Saturating well above 94% on room air. He did not experience any shortness of breath or chest pain. His confusion and blood pressure improved with stress dose steroids. No signs of neurological deficit or meningitis/seizure. Electrolytes were replenished, potassium, calcium, low phosphorus replenished. He will need to quarantine for at least 3 weeks I emphasized the importance of getting medical bracelet. Of note, leukocytosis improved, blood cultures consistent with contamination, he remained afebrile. Physical Exam Narrative: EXAM NARRATIVE: Saturating well on room air Awake and alert Nonfocal neuro exam Well-hydrated Very cooperative S1, S2 Abdomen soft No acute respiratory distress Discharge Data Data Completed and Pending: Completed Studies During Hospitalization Category Date Time Status XR chest 1V [place] ble [id number] Urgent Exams 05/12/21 14:18 Completed Pending at discharge Category Date Time Status Blood Culture Sta t Lab 05/12/21 15:16 Results Blood Culture Sta t Lab 05/13/21 15:30 Results Streptococcus Cul ture Group A Stat Lab 05/12/21 14:54 Results Labs from last 24 hours 05/15/21 05/15/21 05/15/21 06:35 02:03 02:03 WBC 9.5 RBC 3.84 L Hgb 11.4 L Hct 33.6 L MCV 87.5 MCH 29.7 MCHC 33.9 RDW 12.5 Plt Count 106 L MPV 12.2 H Neut % (Auto) 69.5 Lymph % (Auto) 25.0 [place] % (Auto) 5.2 Eos % (Auto) 0.0 Baso % (Auto) 0.1 Neut # (Auto) 6.60 Lymph # (Auto) 2.4 [place] # (Auto) 0.5 Eos # (Auto) 0.0 Baso # (Auto) 0.0 Nucleated RBC % (a uto) 0 Nucleated RBCs # 0.0 Sodium 140 Potassium 3.6 Chloride 105 Carbon Dioxide 25 Anion Gap 13.6 BUN 18 Creatinine 0.7 GFR Calculation 135.3 H Glucose 92 POC Glucose 100 Calculated Osmolal ity 292 Calcium 8.2 L Total Bilirubin 0.6 AST 41 H ALT 60 H Alkaline Phosphata se 55 Total Protein 5.5 L Albumin 3.4 L Globulin 2.1 Vancomycin Trough 05/14/21 05/14/21 05/14/21 21:22 16:37 13:12 WBC RBC Hgb Hct MCV MCH MCHC RDW Plt Count MPV Neut % (Auto) Lymph % (Auto) [place] % (Auto) Eos % (Auto) Baso % (Auto) Neut # (Auto) Lymph # (Auto) [place] # (Auto) Eos # (Auto) Baso # (Auto) Nucleated RBC % (a uto) Nucleated RBCs # Sodium Potassium Chloride Carbon Dioxide Anion Gap BUN Creatinine GFR Calculation Glucose POC Glucose 116 H 113 H Calculated Osmolal ity Calcium Total Bilirubin AST ALT Alkaline Phosphata se Total Protein Albumin Globulin Vancomycin Trough 13.9 Vitals: Last Vital Signs Temp 98.1 F 05/15/21 08:00 Pulse 60 05/15/21 08:00 Resp 16 05/15/21 08:00 BP 110/54 05/15/21 08:00 Pulse Ox 99 05/15/21 08:00 Discharge Plan Discharge Patient Disposition: Home Condition: Stable Prescriptions: New prednisone 5 mg Tablet 10 mg PO DAILY Qty: 90 RF: 3 fludrocortisone 0.1 mg Tablet 0.1 mg PO DAILY Qty: 30 RF: 3 albuterol sulfate 90 mcg/actuation HFA aerosol inhaler 2 inh inhalation Q8H PRN (Reason: shortness of breath or wheezing) Qty: 8.5 RF: 0 potassium chloride 10 mEq capsule, extended release 10 meq PO DAILY Qty: 5 RF: 0 Continued fludrocortisone 0.1 mg tablet 0.1 mg PO DAILY 90 Days Qty: 90 RF: 3 levothyroxine 50 mcg tablet 50 mcg PO DAILY Qty: 90 RF: 3 Discontinued prednisone 5 mg tablet 5 mg PO DAILY 30 Days Qty: 30 RF: 2 Discharge Orders: Discharge Order (Routine); Ordered 05/15/21 Ordered By: Khadra Davis Referrals: Дмитрий Munroe MD [Physician] - 05/29/21 10:30 am Discharge Diet: Regular Discharge Activity: Increase activity as tolerated Patient Instructions: Albuterol (By breathing), Prednisone (By mouth), Potassium Chloride (By mouth), Fludrocortisone Acetate (By mouth), Vimal Disease (GEN), COVID-19 (Coronavirus Disease 2019) (GEN), Opioid Safety Activity Restrictions/Additional Instructions: You need to quarantine for at least 3 weeks Discharge Attestations Time Spent in Discharge Care*: less than 30 min Quality Metrics Clinical Quality Measures During this hospital stay, did patient experience: None Coding Level of Care Code Acute Chg FW DC note Diagnoses MERYL (acute kidney injury) N17.9 Abnormal transaminases R74.8 Hypokalemia E87.6 Addisonian crisis E27.2 Dehydration, moderate E86.0 Thrombocytopenia D69.6 2019 novel coronavirus detected U07.1 Weight loss R63.4 Addisons disease E27.1 Hypothyroidism E03.9 Hypothyroidism type: acquired
[2021-05-15 12:00] VITALS: BP 107/65; PULSE 68; RESP 16; TEMP 37.1; O2SAT 94
--- NOTE | 2021-05-15 12:08 | PC.NURSE ---
Discharge discussed with patient. Verbalized understanding.
[2021-05-15 12:10] LABS: Glucose Point of Care 97 mg/dL (70-110)
[2021-05-15 13:39] VITALS: BP 107/65; PULSE 68; RESP 16; TEMP 37.1; O2SAT 94
== END 2021-05-15 13:00 | disposition home or self-care (01) | DRG 643 ==
LOC: ER 17:44 → ER IP 05-13 00:44 → MEDSURG 05-15 11:15 → ER IP 05-23 12:48
PROVIDERS: Admitting Provider Internal Medicine; Emergency Provider Family Medicine; Visit Provider Internal Medicine
DX: U07.1 COVID-19 (principal); E27.2 Addisonian crisis; N17.9 Acute kidney failure, unspecified; Z68.1 Body mass index [BMI] 19.9 or less, adult; E87.1 Hypo-osmolality and hyponatremia; F05 Delirium due to known physiological condition; E87.6 Hypokalemia; E86.0 Dehydration; D69.6 Thrombocytopenia, unspecified; E03.9 Hypothyroidism, unspecified; R74.01 Elevation of levels of liver transaminase levels; E27.1 Primary adrenocortical insufficiency; R63.4 Abnormal weight loss; R00.0 Tachycardia, unspecified; R73.9 Hyperglycemia, unspecified; Z79.52 Long term (current) use of systemic steroids; Z72.0 Tobacco use; R74.8 Abnormal levels of other serum enzymes
CPT/HCPCS: 36415; 36416; 71045; 80053; 80202; 80306; 80307; 81001; 82009; 82962; 83036; 83605; 83690; 83735; 84100; 84145; 84443; 84484; 85025; 85378; 86140; 86705; 86706; 86709; 86803; 87040; 87077; 87081; 87086; 87186; 87205; 87340; 87635; 87804; 87880; 93005; 96361; 96365; 96366; 96375; 99285; G0378; J0696; J1720; J3370; J3480; J7030; J7050; J7512; J7799